=== PATIENT | male | born 2005 | race African-American/Black ===

== ENCOUNTER 2024-04-26 08:59 | Emergency (ER) | payer OTHER ==
[2024-04-26 09:09] VITALS: BP 125/70; PULSE 70; RESP 20; TEMP 97.9; BMI 19.8
[2024-04-26] MEDS ORDERED: KETOROLAC TROMETHAMINE 30 MG/1 ML VIAL ONE (09:40)
[2024-04-26] MEDS ORDERED: CYCLOBENZAPRINE HCL 5 MG TABLET ONE (09:46)
[2024-04-26] MEDS: KETOROLAC TROMETHAMINE 30 MG/1 ML VIAL IM ONE (09:52)
[2024-04-26] MEDS: CYCLOBENZAPRINE HCL 5 MG TABLET PO ONE (09:52)
== END 2024-04-26 11:29 | disposition home or self-care (01) ==
LOC: JERFT 08:59
PROC: 3E0233Z Introduction of Anti-inflammatory into Muscle, Percutaneous Approach (ICD-10-PCS; principal; 2024-04-26)
DX: M54.50 Low back pain, unspecified (principal); V49.40XA Driver injured in collision with unspecified motor vehicles in traffic accident, initial encounter; Y92.410 Unspecified street and highway as the place of occurrence of the external cause
CPT/HCPCS: 72100-TC-FY; 72131-TC; 99284-25

== ENCOUNTER 2025-03-11 11:32 | Emergency (ER) | payer OTHER ==
[2025-03-11 11:44] VITALS: BP 102/68; PULSE 67; RESP 18; TEMP 98.4; BMI 19.3
[2025-03-11] MEDS: IBUPROFEN 600 MG TABLET (FP) PO ONE (12:49)
[2025-03-11] MEDS ORDERED: IBUPROFEN 600 MG TABLET (FP) PO ONE (12:49)
== END 2025-03-11 14:02 | disposition home or self-care (01) ==
LOC: JER 11:32
DX: R07.89 Other chest pain (principal); W50.0XXA Accidental hit or strike by another person, initial encounter; Y93.67 Activity, basketball
CPT/HCPCS: 71111-TC-FY; 99283-25